=== PATIENT | female | born 1960 | race African-American/Black ===

== ENCOUNTER 2017-08-30 08:48 | Day surgery (SDC) | payer OTHER ==
[2017-06-25 08:53] VITALS: BMI 32.5
[~2017-08-30 08:48] MED LIST: LEVOFLOXACIN 500 MG PREMIX BAG IVPB ONE
[2017-08-30 09:08] VITALS: TEMP 97.3
[2017-08-30] MEDS ORDERED: LEVOFLOXACIN 500 MG IVPB 500 MG/100 ML BAG IVPB ONE (10:25)
[2017-08-30] MEDS ORDERED: MIDAZOLAM HCL 2 MG/2 ML SINGLE DOSE VIAL ONE (10:28)
[2017-08-30] MEDS ORDERED: PROPOFOL 20 ML ONE ×2 (10:28)
[2017-08-30] MEDS ORDERED: oxyCODONE HCL 5 MG TABLET PO PRN (10:48)
[2017-08-30] MEDS ORDERED: ONDANSETRON 4 MG/2 ML VIAL IVPUSH PRN (10:48)
[2017-08-30] MEDS ORDERED: LEVOFLOXACIN 500 MG PREMIX BAG IVPB ONE (10:55)
[2017-08-30] MEDS ORDERED: LACTATED RINGERS SOLUTION 1,000 ML IV SCH (11:00)
--- NOTE | 2017-08-30 13:00 | OP ---
Operative Note - Note: Operative Date: 08/30/17 Pre-Operative Diagnosis: left renal stone Operation: left eswl Findings: 6 mm left mid pole stone Post-Operative Diagnosis: Same as Pre-op Surgeon: Kip Bush Anesthesia: Fractional
[2017-08-30 13:58] VITALS: BP 130/90; PULSE 80
--- NOTE | 2017-08-30 21:46 | OP ---
DATE OF OPERATION: 08/30/2017 PREOPERATIVE DIAGNOSIS: Left renal stone. POSTOPERATIVE DIAGNOSIS: Left renal stone. PROCEDURE: Left extracorporeal shock wave lithotripsy. ATTENDING: Iain Mendiola MD ANESTHESIA: Fractional. DESCRIPTION OF OPERATION: Patient was brought in the operating room, placed in a supine position on the operating room table. Ultrasonography and fluoroscopy were performed. On the left side, a 6-mm mid-pole stone was noted. Ultrasonography was performed on the right side due to the past history of kidney stones. Two stones were present in the right side, measuring 3-4 mm. The patient is brought in today for the left extracorporeal shock wave lithotripsy. Once the left stone was identified, fractional anesthesia and preoperative antibiotics were administered. Extracorporeal shock wave lithotripsy was then started; 2500 impulses at 18 joules of power were administered to the stone with excellent fragmentation of the stone under real-time ultrasonography and fluoroscopy. No complications were noted. The disposition of the patient was to the recovery room. IAIN MENDIOLA M.D. [id number]
== END 2017-08-30 13:30 | disposition home or self-care (01) ==
LOC: JASU-SURG 08:48
PROVIDERS: ATTEND Urology
PROC: 0TF4XZZ Fragmentation in Left Kidney Pelvis, External Approach (ICD-10-PCS; principal; 2017-08-30 11:00)
DX: N20.0 Calculus of kidney (principal)

== ENCOUNTER 2017-10-25 10:17 | Day surgery (SDC) | payer OTHER ==
[2017-10-21 13:59] VITALS: BMI 34.4
[2017-10-25] MEDS ORDERED: MIDAZOLAM HCL 2 MG/2 ML SINGLE DOSE VIAL ONE (11:38)
[2017-10-25] MEDS ORDERED: IBUPROFEN 800 MG/8 ML IJ IVPB PRN (12:24)
[2017-10-25] MEDS ORDERED: oxyCODONE HCL 5 MG TABLET PO PRN (12:24)
[2017-10-25] MEDS ORDERED: ONDANSETRON 4 MG/2 ML VIAL IVPUSH PRN (12:24)
[2017-10-25] MEDS ORDERED: LACTATED RINGERS SOLUTION 1,000 ML IV SCH (12:30)
--- NOTE | 2017-10-25 13:41 | OP ---
Operative Note - Note: Operative Date: 10/25/17 Pre-Operative Diagnosis: Right kidney stones Operation: Right ESWL Findings: 5 mm right mid pole stone Post-Operative Diagnosis: Same as Pre-op Anesthesia: Fractional Operative Report Dictated: Yes
[2017-10-25 14:02] VITALS: TEMP 98
[2017-10-25 15:51] VITALS: BP 137/85; PULSE 80
--- NOTE | 2017-10-26 09:54 | OP ---
DATE OF OPERATION: 10/25/2017 PREOPERATIVE DIAGNOSIS: Right renal stone. POSTOPERATIVE DIAGNOSIS: Right renal stone. PROCEDURE: Right extracorporeal shock wave lithotripsy. ANESTHESIA: Fractional. ATTENDING: Iain Mendiola MD OPERATION: The patient was brought in the operating room, placed in supine position on the operating room table. Ultrasonography and fluoroscopy were performed. A 5-mm right mid pole stone was identified. At this point, preoperative antibiotics and fractional anesthesia were administered. Once this was accomplished, an extracorporeal shock wave lithotripsy was started, 2500 impulses at 18 joules of power were administered to the stone. Excellent fragmentation of the stone was noted under real time ultrasonography and fluoroscopy. No complications were noted. The patient tolerated the procedure very well. IAIN MEDNIOLA M.D. [id number]
== END 2017-10-25 15:30 | disposition home or self-care (01) ==
LOC: JASU-SURG 10:17
PROVIDERS: ATTEND Urology
PROC: 0TF3XZZ Fragmentation in Right Kidney Pelvis, External Approach (ICD-10-PCS; principal; 2017-10-25 11:45)
DX: N20.0 Calculus of kidney (principal)

== ENCOUNTER 2018-08-29 07:59 | Day surgery (SDC) | payer OTHER ==
[2018-08-26 13:27] VITALS: BMI 34.4
[~2018-08-29 07:59] MED LIST changes: -LEVOFLOXACIN 500 MG PREMIX BAG IVPB ONE; +oxyCODONE HCL 5 MG TABLET PO PRN
[2018-08-29] MEDS ORDERED: MIDAZOLAM HCL 2 MG/2 ML SINGLE DOSE VIAL ONE (10:43)
--- NOTE | 2018-08-29 11:59 | OP ---
Operative Note - Note: Operative Date: 08/29/18 Pre-Operative Diagnosis: Left renal stone Operation: Lrftb ESWL Findings: 5 mm lower pole renal stone Post-Operative Diagnosis: Same as Pre-op Surgeon: Kip Bush Anesthesia: Fractional Estimated Blood Loss (mls): 0 Operative Report Dictated: Yes
[2018-08-29 16:15] VITALS: PULSE 81
[2018-08-29 16:21] VITALS: BP 128/70; TEMP 97.8
--- NOTE | 2018-08-30 07:55 | OP ---
DATE OF OPERATION: 08/29/2018 PREOPERATIVE DIAGNOSIS: Left renal stone. POSTOPERATIVE DIAGNOSIS: Left renal stone. PROCEDURE: Left extracorporeal shock wave lithotripsy. ATTENDING: Iain Mendiola MD ANESTHESIA: Fractional. OPERATION FOLLOWS: The patient was brought in the operating room, placed in supine position on the operating room table. Ultrasonography and fluoroscopy were performed. A 5-mm left lower pole stone was identified. Anesthesia and preoperative antibiotics were then administered. Shock wave lithotripsy was started of the stone fragments under real time ultrasonography and fluoroscopy. No complications were noted. The disposition of the patient was to the recovery room. IAIN MENDIOLA M.D. [id number]
== END 2018-08-29 13:30 | disposition home or self-care (01) ==
LOC: JASU-SURG 07:59
PROVIDERS: ATTEND Urology
PROC: 0TF4XZZ Fragmentation in Left Kidney Pelvis, External Approach (ICD-10-PCS; principal; 2018-08-29 09:30)
DX: N20.0 Calculus of kidney (principal)
CPT/HCPCS: 94760

== ENCOUNTER 2021-05-05 04:34 | Day surgery (SDC) | payer OTHER ==
[2021-05-02 11:57] VITALS: BMI 32.9
[2021-05-05] MEDS ORDERED: MIDAZOLAM HCL 2 MG/2 ML SINGLE DOSE VIAL ONE (13:18)
[2021-05-05] MEDS ORDERED: ACETAMINOPHEN 325 MG TABLET (FP) ONE (15:19)
[2021-05-05] MEDS ORDERED: ACETAMINOPHEN 325 MG TABLET (FP) PO ONE (15:23)
[2021-05-05 17:31] VITALS: BP 141/72; PULSE 78; TEMP 97.2
== END 2021-05-05 16:00 | disposition home or self-care (01) ==
LOC: JASU-SURG 04:34
PROVIDERS: ATTEND Urology
PROC: 0TF4XZZ Fragmentation in Left Kidney Pelvis, External Approach (ICD-10-PCS; principal; 2021-05-05 12:30)
DX: N20.0 Calculus of kidney (principal)

== ENCOUNTER 2024-03-06 05:17 | Day surgery (SDC) | payer OTHER ==
[2024-03-03 13:59] VITALS: BMI 34.0
[2024-03-06] MEDS ORDERED: MIDAZOLAM HCL 2 MG/2 ML SINGLE DOSE VIAL ONE (12:08)
[2024-03-06] MEDS ORDERED: ACETAMINOPHEN 500 MG TABLET (FP) ONE (13:45)
[2024-03-06] MEDS: ACETAMINOPHEN 500 MG TABLET (FP) PO ONE (14:00)
[2024-03-06] MEDS ORDERED: ACETAMINOPHEN 500 MG TABLET (FP) PO ONE (14:17)
[2024-03-06 14:26] VITALS: BP 147/74; PULSE 78; RESP 18; TEMP 97.7
== END 2024-03-06 15:15 | disposition home or self-care (01) ==
LOC: JASU-SURG 05:17
PROVIDERS: ATTEND Urology
PROC: 0TF4XZZ Fragmentation in Left Kidney Pelvis, External Approach (ICD-10-PCS; principal; 2024-03-06 12:17)
DX: N20.0 Calculus of kidney (principal)